=== PATIENT | female | born 1955 | race Caucasian/White ===

== ENCOUNTER 2016-12-11 12:35 | Inpatient (IN) | payer OTHER ==
[~2016-12-11] VITALS: Ht 162.6 cm; Wt 84.4 kg
[2016-12-11 13:40] LABS: BASOPHIL % 0.8 % (0-2); PLATELET COUNT 331 x10^3mcL (130-400); RED CELL DISTRIBUTION WIDTH 14.7 % (11.5-14.5)
[2016-12-11 13:49] LABS: CALCIUM 9.2 mg/dL (8.5-10.1); CARBON DIOXIDE 30.3 mmol/L (21-32); CREATININE SERUM 1.8 mg/dL (0.6-1.0); POTASSIUM SERUM 4.5 mmol/L (3.5-5.1)
[2016-12-11 13:54] LABS: ALBUMIN 3.5 g/dL (3.4-5.0); BILIRUBIN TOTAL 0.5 mg/dL (0.20-1.00); TOTAL PROTEIN, SERUM 7.8 g/dL (6.4-8.2)
[2016-12-11] MEDS ORDERED: TENORMIN50 MG PO (15:27)
[2016-12-11] MEDS ORDERED: FUROSEMIDE40 MG PO (15:28)
[2016-12-11] MEDS ORDERED: LEVOXYL0.05 MG PO (15:28)
[2016-12-11] MEDS ORDERED: ATORVASTATIN CA40 M1 PO (15:28)
[2016-12-11] MEDS ORDERED: PAXIL10 MG PO (15:28)
[2016-12-11 15:31] LABS: PHOSPHOROUS 3.6 mg/dL (2.5-4.9)
[2016-12-11 15:35] LABS: CHOLESTEROL/HDL RATIO 3.2; MAGNESIUM 2.1 mg/dL (1.8-2.4)
[2016-12-11 15:40] LABS: T3 TOTAL 0.59 ng/mL
[2016-12-11 15:45] LABS: FREE T4 2.03 ng/dL (0.76-1.46); FREE THYROXINE INDEX 2.7 ug/dL (1.4-4.5)
[2016-12-11 17:10] LABS: microscopic required? YES; urine erythrocyte TRACE (NEGATIVE)
[2016-12-11 17:25] LABS: AMPHETAMINE QUAL UR NONE DETECTED (NEG <=1000)
[2016-12-11 17:57] VITALS: BP 116/59
[2016-12-11] MEDS ORDERED: NOVI SQ (19:18)
[2016-12-11] MEDS ORDERED: LANTI SQ (19:19)
[2016-12-11 21:34] VITALS: BP 148/55
[2016-12-12 06:30] VITALS: BP 139/58
[2016-12-12 07:09] LABS: CALCIUM 8.8 mg/dL (8.5-10.1); CARBON DIOXIDE 28.1 mmol/L (21-32); MAGNESIUM 2.1 mg/dL (1.8-2.4); PHOSPHOROUS 5.2 mg/dL (2.5-4.9); POTASSIUM SERUM 4.7 mmol/L (3.5-5.1)
[2016-12-12 07:35] LABS: BASOPHIL % 0.6 % (0-2); PLATELET COUNT 304 x10^3mcL (130-400); RED CELL DISTRIBUTION WIDTH 14.4 % (11.5-14.5)
[2016-12-12 09:40] VITALS: BP 129/49
[2016-12-12 13:36] VITALS: BP 132/55
[2016-12-12 19:07] VITALS: BP 131/53
[2016-12-12 21:23] VITALS: BP 158/53
[2016-12-13 05:30] VITALS: BP 142/65
[2016-12-13 06:22] LABS: CALCIUM 8.5 mg/dL (8.5-10.1); CARBON DIOXIDE 25.5 mmol/L (21-32); CREATININE SERUM 2.1 mg/dL (0.6-1.0); POTASSIUM SERUM 4.5 mmol/L (3.5-5.1)
[2016-12-13 07:22] LABS: BASOPHIL % 0.3 % (0-2); PLATELET COUNT 265 x10^3mcL (130-400); RED CELL DISTRIBUTION WIDTH 14.2 % (11.5-14.5)
[2016-12-13 08:00] VITALS: BP 150/51
[2016-12-13 13:26] VITALS: BP 124/58
[2016-12-13 16:00] VITALS: BP 128/68
[2016-12-13 22:33] VITALS: BP 131/49
[2016-12-14 06:34] VITALS: BP 156/54
[2016-12-14 06:40] LABS: CALCIUM 8.2 mg/dL (8.5-10.1); CARBON DIOXIDE 26.7 mmol/L (21-32); CREATININE SERUM 1.8 mg/dL (0.6-1.0); MAGNESIUM 2.1 mg/dL (1.8-2.4); PHOSPHOROUS 3.8 mg/dL (2.5-4.9); POTASSIUM SERUM 4.7 mmol/L (3.5-5.1)
[2016-12-14 06:46] LABS: BASOPHIL % 0.6 % (0-2); PLATELET COUNT 241 x10^3mcL (130-400)
[2016-12-14 06:57] LABS: RED CELL DISTRIBUTION WIDTH 14.8 % (11.5-14.5)
[2016-12-14 10:21] VITALS: BP 156/78
[2016-12-14 13:59] VITALS: BP 110/53
[2016-12-14 18:12] VITALS: BP 146/45
[2016-12-14 20:54] VITALS: BP 170/65
[2016-12-15 05:41] VITALS: BP 170/63
[2016-12-15 09:17] VITALS: BP 175/65
[2016-12-15 13:02] VITALS: BP 131/53
[2016-12-15] MEDS ORDERED: NOR5 PO (13:50)
[2016-12-15 18:08] VITALS: BP 153/57
[2016-12-15] MEDS ORDERED: NIT0.4 SL (20:49)
[2016-12-15] MEDS ORDERED: ECO81 PO (20:51)
[2016-12-15] MEDS ORDERED: MOR2I IV (20:51)
[2016-12-15] MEDS ORDERED: APAP/HYDROCODON1 T13 PO (20:51)
[2016-12-15] MEDS ORDERED: TYL325 PO (20:52)
[2016-12-15] MEDS ORDERED: LORAZEPAM0.5 MG PO (20:52)
[2016-12-15] MEDS ORDERED: DEXPF IV (20:53)
[2016-12-15] MEDS ORDERED: L40I IV (20:53)
[2016-12-15] MEDS ORDERED: BG MC (20:53)
[2016-12-15] MEDS ORDERED: ZOFI IV (20:54)
[2016-12-15] MEDS ORDERED: COL100 PO (20:54)
[2016-12-15] MEDS ORDERED: MECLIZINE HCL12.5 MG PO (20:54)
[2016-12-15] MEDS ORDERED: GLU5 PO (20:55)
[2016-12-15] MEDS ORDERED: HUMULIN R100 U/1 M1 SC (20:55)
[2016-12-15] MEDS ORDERED: PRI20 PO (20:55)
[2016-12-15] MEDS ORDERED: LEVEMIR100 U/M1 SQ (20:55)
[2016-12-15] MEDS ORDERED: THERA TABS1 TAB PO (20:57)
[2016-12-15 21:15] VITALS: BP 156/57
[2016-12-15 21:33] VITALS: BP 156/57
== END 2016-12-15 22:49 | disposition short-term general hospital (02) | DRG 44 ==
LOC: ED 12:35 → DU 15:03
PROVIDERS: Emergency Medicine; ADMIT Family Medicine
PROC: 7W01X1Z Osteopathic Treatment of Cervical Region using Fascial Release (ICD-10-PCS; principal; 2016-12-13)
PROC: 7W0 Osteopathic, Anatomical Regions, Treatment (ICD-10-PCS; 2016-12-13)
PROC: 7W08X4Z Osteopathic Treatment of Rib Cage using Indirect Forces (ICD-10-PCS; 2016-12-13)
PROC: 7W0 Osteopathic, Anatomical Regions, Treatment (ICD-10-PCS; 2016-12-13)
PROC: 7W01X7Z Osteopathic Treatment of Cervical Region using Muscle Energy-Isometric Forces (ICD-10-PCS; 2016-12-13)
DX: I60.6 Nontraumatic subarachnoid hemorrhage from other intracranial arteries (principal); N17.0 Acute kidney failure with tubular necrosis; E11.51 Type 2 diabetes mellitus with diabetic peripheral angiopathy without gangrene; K85.90 Acute pancreatitis without necrosis or infection, unspecified; I42.8 Other cardiomyopathies; N18.3 Chronic kidney disease, stage 3 (moderate); E11.65 Type 2 diabetes mellitus with hyperglycemia; R80.8 Other proteinuria; K76.0 Fatty (change of) liver, not elsewhere classified; E03.9 Hypothyroidism, unspecified; M99.01 Segmental and somatic dysfunction of cervical region; M99.08 Segmental and somatic dysfunction of rib cage; I12.9 Hypertensive chronic kidney disease with stage 1 through stage 4 chronic kidney disease, or unspecified chronic kidney disease; D63.8 Anemia in other chronic diseases classified elsewhere; E78.5 Hyperlipidemia, unspecified; F41.1 Generalized anxiety disorder; F32.9 Major depressive disorder, single episode, unspecified; E66.8 Other obesity; Z68.31 Body mass index [BMI] 31.0-31.9, adult; I69.354 Hemiplegia and hemiparesis following cerebral infarction affecting left non-dominant side
CPT/HCPCS: 80307; 82962; 84439; 97110-GP; 97116-GP; 97530-GP; A9579; J1100; J1815; J1885; J1940; J2060; J2270; J2405; J3010; J3490; J7030; Q0092; Q9967